=== PATIENT | female | born 1980 | race Caucasian/White ===

== ENCOUNTER 2019-07-26 20:28 | Emergency (ER) | payer MEDICAID, SELFPAY ==
[~2019-07-26] VITALS: Ht 165.1 cm; Wt 82.8 kg
[2019-07-26 20:32] VITALS: BP 114/81
[2019-07-26] MEDS ORDERED: SODIUM CHLORIDE FLUSH 10ML SYR IVF ONE (21:30)
[2019-07-26 21:35] LABS: BASOPHILS # (AUTO) 0.02 x10^3/uL (0-0.1); BASOPHILS % (AUTO) 0 % (0-1); EOSINOPHILS % (AUTO) 2 % (1-7); LYMPHOCYTES # (AUTO) 1.72 x10^3/uL (1-3.4); LYMPHOCYTES % (AUTO) 36 % (22-44); MD NO; MEAN CORPUSCULAR HEMOGLOBIN 30.7 pg (27.0-34.8); MEAN CORPUSCULAR HGB CONC 33.5 g/dL (32.4-35.8); MEAN CORPUSCULAR VOLUME 91.6 fL (80-100); MEAN PLATELET VOLUME 10.1 fL (7.4-10.4); MONOCYTES # (AUTO) 0.41 x10^3/uL (0.2-0.8); MONOCYTES % (AUTO) 9 % (2-9); NEUTROPHILS # (AUTO) 2.56 x10^3/uL (1.8-6.8); NEUTROPHILS % (AUTO) 53 % (42-75); PLATELET COUNT 247 x10^3/uL (130-400); RED BLOOD COUNT 4.58 x10^6/uL (3.82-5.3); RED CELL DISTRIBUTION WIDTH 13.4 % (9.6-15.2)
[2019-07-26 21:46] LABS: ALANINE AMINOTRANSFERASE 168 U/L (12-78); ALBUMIN 3.2 g/dL (3.4-5.0); ANION GAP 4 mmol/L (5-15); CALCIUM 8.3 mg/dL (8.5-10.1); CHLORIDE 109 mmol/L (98-107)
[2019-07-26 21:48] LABS: CULTURE INDICATED? YES; MICROSCOPIC INDICATED
[2019-07-26 21:51] LABS: ALKALINE PHOSPHATASE 117 U/L (45-117); BILIRUBIN,TOTAL 0.5 mg/dL (0.2-1.0); TOTAL PROTEIN 6.9 g/dL (6.4-8.2)
[2019-07-26] MEDS ORDERED: OMNIPAQUE 350 MG/ML, 100ML BOTTLE ONE (22:20)
== END 2019-07-26 23:57 | disposition home or self-care (01) ==
LOC: ED 21:58
DX: R10.13 Epigastric pain (principal); Z90.721 Acquired absence of ovaries, unilateral; Z90.49 Acquired absence of other specified parts of digestive tract; Z90.722 Acquired absence of ovaries, bilateral
CPT/HCPCS: 36415; 74177; 80053; 81001; 83690; 84703; 85025; 87086; 93005; 99285; Q9967

== ENCOUNTER 2020-05-29 17:09 | Emergency (ER) | payer MEDICAID ==
[~2020-05-29] VITALS: Ht 162.6 cm; Wt 67.7 kg
[2020-05-29] MEDS ORDERED: ONDANSETRON 2MG/ML, 2ML ONE (18:15)
--- NOTE | 2020-05-29 18:22 | NUR ---
PT HAS CO N/V LOWER ABDOMINAL PAIN FOR 12 HOURS. DENIES CP OR RESP SYMPTOMS. PT STATES HUSBNAD HAD SAME SYMPTOMS W FOOD POISONING. HX OF GASTRIC SLEEVE.. PT MEDICATED PER ORDERS. PIV, LABS COMPLETE
[2020-05-29 18:28] LABS: BASOPHILS % (AUTO) 0 % (0-1); EOSINOPHILS % (AUTO) 1 % (1-7); LYMPHOCYTES % (AUTO) 4 % (22-44); MEAN CORPUSCULAR HEMOGLOBIN 31.2 pg (27.0-34.8); MEAN CORPUSCULAR HGB CONC 33.8 g/dL (32.4-35.8); MEAN PLATELET VOLUME 9.9 fL (7.4-10.4); MONOCYTES % (AUTO) 5 % (2-9); NEUTROPHILS % (AUTO) 89 % (42-75); PLATELET COUNT 207 x10^3/uL (130-400); RED BLOOD COUNT 4.83 x10^6/uL (3.82-5.3); RED CELL DISTRIBUTION WIDTH 13.2 % (9.6-15.2)
[2020-05-29 18:30] LABS: MD NO
[2020-05-29] MEDS ORDERED: ONDANSETRON 2MG/ML, 2ML IVPush ONE (18:30)
[2020-05-29] MEDS ORDERED: SODIUM CHLORIDE 0.9% 1,000ML IVBOLUS ONE (18:30)
[2020-05-29] MEDS ORDERED: SODIUM CHLORIDE FLUSH 10ML SYR IVF ONE (18:30)
[2020-05-29 18:33] LABS: MICROSCOPIC NOT IND
[2020-05-29 18:39] LABS: CHLORIDE 111 mmol/L (98-107)
[2020-05-29 18:49] LABS: ALANINE AMINOTRANSFERASE 16 U/L (12-78); ALBUMIN 3.6 g/dL (3.4-5.0); ALKALINE PHOSPHATASE 68 U/L (45-117); ANION GAP 6 mmol/L (5-15); BILIRUBIN,TOTAL 1.2 mg/dL (0.2-1.0); CALCIUM 8.5 mg/dL (8.5-10.1); CREATININE 0.63 mg/dL (0.55-1.02); TOTAL PROTEIN 6.6 g/dL (6.4-8.2)
--- NOTE | 2020-05-29 18:50 | NUR ---
REPORT TO MARIOLA
--- NOTE | 2020-05-29 19:46 | NUR ---
PT DISCHARGED NO EVAL DONE PRIOR NO BP PRIOR BY OFF ZINA RN IV PULLED NO PROBLEMS WITH SITE...
[2020-05-29 19:48] VITALS: BP 137/74
== END 2020-05-29 19:49 | disposition home or self-care (01) ==
LOC: ED 19:38
DX: R11.2 Nausea with vomiting, unspecified (principal); R10.84 Generalized abdominal pain; R19.7 Diarrhea, unspecified; Z90.49 Acquired absence of other specified parts of digestive tract; Z90.722 Acquired absence of ovaries, bilateral; Z85.43 Personal history of malignant neoplasm of ovary
CPT/HCPCS: 36415; 80053; 81003; 83690; 84703; 85025; 96361; 96374; 99283; J2405; J7030

== ENCOUNTER 2020-09-08 16:39 | Emergency (ER) | payer MEDICAID ==
[~2020-09-08] VITALS: Ht 162.6 cm; Wt 69.9 kg
[2020-09-08 16:46] VITALS: BP 100/72
--- NOTE | 2020-09-08 17:08 | NUR ---
patient arrives [facility] concerned about hcg levels. went four days ago to [facility] as she wasn't feeling well. she found out four days ago she was . she has one ovary and one fallopian tube on opposing sides so periods are irregular at baseline. [facility] told her she was 6 weeks one day preg based on u/s of abdomen. they told her hcg levels were 92k, then 109k two days apart. they told her to come back in 48 hours but thier wait is 3 hours, so they are here. she has ob appt september 24. no vag bleeding. no discharge.
[2020-09-08 17:28] LABS: BASOPHILS % (AUTO) 0 % (0-1); EOSINOPHILS % (AUTO) 2 % (1-7); LYMPHOCYTES % (AUTO) 28 % (22-44); MEAN CORPUSCULAR HEMOGLOBIN 31.6 pg (27.0-34.8); MEAN CORPUSCULAR HGB CONC 34.3 g/dL (32.4-35.8); MEAN PLATELET VOLUME 9.7 fL (7.4-10.4); MONOCYTES % (AUTO) 10 % (2-9); NEUTROPHILS % (AUTO) 60 % (42-75); PLATELET COUNT 222 x10^3/uL (130-400); RED BLOOD COUNT 4.12 x10^6/uL (3.82-5.3); RED CELL DISTRIBUTION WIDTH 12.9 % (9.6-15.2)
[2020-09-08 17:37] LABS: MD NO
[2020-09-08 17:37] LABS: MICROSCOPIC INDICATED
[2020-09-08 17:39] LABS: ANION GAP 6 mmol/L (5-15); CHLORIDE 110 mmol/L (98-107); CREATININE 0.64 mg/dL (0.55-1.02)
[2020-09-08] MEDS ORDERED: ZIPRASIDONE 20 MG INJ IM ONE (18:37)
[2020-09-08] MEDS ORDERED: DOCUSATE 100 MG CAPSULE ONE (19:14)
[2020-09-08] MEDS ORDERED: DOCUSATE 100 MG CAPSULE PO PRN (19:30)
== END 2020-09-08 19:28 | disposition home or self-care (01) ==
LOC: ED 19:00
DX: O03.4 Incomplete spontaneous abortion without complication (principal); K59.00 Constipation, unspecified
CPT/HCPCS: 36415; 80048; 81001; 82040; 84702; 85025; 87086; 99283